=== PATIENT | female | born 1970 | race African-American/Black ===

== ENCOUNTER 2022-09-24 09:33 | Emergency (ER) | payer BC ==
[2022-09-24] MEDS ORDERED: SODIUM CHLORIDE 0.9% 500 ML INFUS.BAG IV ONE (09:52)
[2022-09-24] MEDS ORDERED: IBUPROFEN 600 MG TABLET (FP) PO ONE ×2 (09:52→09:58)
[2022-09-24 10:01] VITALS: RESP 18; BMI 33.1
[2022-09-24 10:36] LABS: HEMATOCRIT 42.2 % (32.4-45.2); HEMOGLOBIN 14.6 G/dL (10.7-15.3); MCH 30.1 pg (25.7-33.7); MCHC 34.7 g/dl (32.0-36.0); MEAN CELL VOLUME 86.7 fl (80-96); MEAN PLT VOLUME 9.4 fl (7.5-11.1); PLATELET COUNT 233.9 10^3/uL (134-434); RBC 4.87 10^6/uL (3.60-5.2); RDW 13.5 % (11.6-15.6); WHITE BLOOD COUNT 4.5 10^3/uL (4.0-10.8)
[2022-09-24 10:42] LABS: ALBUMIN 3.5 g/dl (3.4-5.0); BILIRUBIN,TOTAL 0.7 mg/dl (0.2-1); CALCIUM 8.8 mg/dl (8.5-10); CREATININE 0.9 mg/dl (0.55-1.3); TOT PROT 7.4 g/dl (6.4-8.2)
[2022-09-24 10:46] LABS: PLATELET ESTIMATE ADEQUATE
[2022-09-24 11:47] VITALS: BP 146/96; PULSE 58; TEMP 98.7
== END 2022-09-24 11:55 | disposition home or self-care (01) ==
LOC: FER 09:33
DX: U07.1 COVID-19 (principal); I10 Essential (primary) hypertension
CPT/HCPCS: 36415; 71045-TC-FY; 80053; 85027; 99284-25